=== PATIENT | male | born 1955 | race Caucasian/White ===

== ENCOUNTER 2023-12-14 14:50 | Inpatient (IN) | payer OTHER ==
[2023-12-14] MEDS ORDERED: MORPHINE 4 MG/ML SYR ONE ×2 (15:03→16:09)
[2023-12-14] MEDS ORDERED: ONDANSETRON 4 MG/2 ML VIAL ONE (15:03)
[2023-12-14 15:13] LABS: Absolute Lymphocytes (CBC) 0.7 K/uL (0.7-4.9); Hematocrit 41.4 % (39.6-49.0); MCV 94.1 fL (80-100); MPV 9.6 fL (7.6-11.3); Platelets 153 thou/uL (152-406)
[2023-12-14 15:28] LABS: Protime INR 1.13
--- NOTE | 2023-12-14 15:30 | RAD REPORT ---
EXAM DESCRIPTION: RAD - Hip Left 2 View - 12/14/2023 3:25 pm CLINICAL HISTORY: PAIN COMPARISON: Pelvis dated 12/14/2023 FINDINGS/IMPRESSION: Mildly displaced left intertrochanteric hip fracture. No dislocation.
--- NOTE | 2023-12-14 15:30 | RAD REPORT ---
EXAM DESCRIPTION: RAD - Pelvis - 12/14/2023 3:25 pm CLINICAL HISTORY: BLUNT TRAUMA COMPARISON: No comparisons FINDINGS/IMPRESSION: Left-sided intertrochanteric hip fracture which is only mildly displaced. No di slocation. No pelvic fracture identified.
[2023-12-14 15:31] LABS: Potassium 4.5 mEq/L (3.5-5.1)
[2023-12-14 15:54] LABS: Blood Morphology Comment NOT SEEN (NOT SEEN); Platelet Estimate ADEQ; White Blood Cell Scan OK (OK)
--- NOTE | 2023-12-14 16:20 | ER ---
Nurse's Notes [facility] Name: Cliff Torres Age: 68 yrs Sex: Male : 1955 Arrival Date: 12/14/2023 Time: 14:50 Bed 7 Private MD: Diagnosis: Intertrochanteric fracture of femur-closed, acute, left femur Presentation: 12/14 14:50 Chief complaint: EMS states: pt tripped over his underwear while trying to use the bathroom last night, fell on left hip , left hip appear broken , pt unable to bear weight. Coronavirus screen: At this time, the client does not indicate any symptoms associated with coronavirus-19. Coronavirus screen:. Ebola Screen: Patient negative for fever greater than or equal to 101.5 degrees Fahrenheit, and additional compatible Ebola Virus Disease symptoms Patient denies exposure to infectious person. Patient denies travel to an Ebola-affected area in the 21 days before illness onset. No symptoms or risks identified at this time. Initial Sepsis Screen: Does the patient meet any 2 criteria? No. Patient's initial sepsis screen is negative. Does the patient have a suspected source of infection? No. Patient's initial sepsis screen is negative. Risk Assessment: Do you want to hurt yourself or someone else? Patient reports no desire to harm self or others. 14:50 Method Of Arrival: EMS: [facility] 14:50 Acuity: [place]AL[place] 3 iw 15:10 Onset of symptoms was December 14, 2023. iw Historical: - Allergies: 15:11 No Known Allergies; iw - Home Meds: 17:30 glimepiride 4 mg Oral tablet 2 times per day [Active]; lisinopril 40 mg Oral tablet iw daily [Active]; metformin 1,000 mg Oral tablet 2 times per day [Active]; - PMHx: 15:11 Hypertensive disorder; Diabetes mellitus; iw - PSHx: 15:11 knee; shoulder; iw - Immunization history:: Adult Immunizations up to date, Client reports receiving the 2nd dose of the Covid vaccine, Pneumococcal vaccine is up to date. - Social history:: Smoking status: Patient denies any tobacco usage or history of. Patient uses alcohol, occasionally. - Family history:: not pertinent. - Hospitalizations: : No recent hospitalization is reported. Screenin:17 [place] ED Fall Risk Assessment (Adult) History of falling in the last 3 months, iw including since admission Yes- single mechanical fall (1 pt) Confusion or Disorientation No (0 pts) Intoxicated or Sedated No (0 pts) Impaired Gait No (0 pts) Mobility Assist Device Used No (0 pt) Altered Elimination No (0 pt) Score/Fall Risk Level. Abuse screen: Denies threats or abuse. Denies injuries from another. Nutritional screening: No deficits noted. Tuberculosis screening: No symptoms or risk factors identified. Assessment: 15:12 General: Appears uncomfortable, Behavior is calm, cooperative. Pain: Complains of pain iw in left hip and lateral aspect of left thigh Pain currently is 4 out of 10 on a pain scale. at worst was 10 out of 10 on a pain scale. Neuro: Level of Consciousness is awake, alert, obeys commands, Oriented to person, place, time, situation, Moves all extremities. Cardiovascular: Patient's skin is warm and dry. Respiratory: Respiratory effort is even, unlabored, Respiratory pattern is regular, symmetrical. Derm: Skin is healthy with good turgor. Musculoskeletal: Range of motion: limited in left hip. 15:35 Reassessment: Attempted to call pt's sister to notify pt is in the hospital per pt's aa5 request, did not answer, left voice mail, pt was notified. . Vital Signs: 14:50 BP 136 / 70; Pulse 89; Resp 16; Temp 98.1; Pulse Ox 98% on R/A; Weight 104.33 kg; iw Height 5 ft. 11 in. ; Pain 4/10; 16:19 BP 140 / 74; Pulse 91; Resp 16; Pulse Ox 97% on R/A; iw 14:50 Body Mass Index 32.08 (104.33 kg, 180.34 cm) iw 14:50 Pain Scale: Adult iw ED Course: 14:51 Patient arrived in ED. rn 14:51 Rohith Tam MD is Attending Physician. rn 15:08 Elisha Kelley, EVELIA is Primary Nurse. iw 15:10 Triage completed. iw 15:12 Arm band placed on. iw 15:13 Maintain EMS IV. Dressing intact. Good blood return noted. Site clean \T\ dry. Gauge \T\ iw site: 18 LAC. 15:18 Patient has correct armband on for positive identification. Provided Education on: . iw Pulse ox on. NIBP on. 15:26 XRAY Hip LEFT 2 view In Process Unspecified. EDMS 15:26 XRAY Pelvis In Process Unspecified. EDMS 16:20 Haris Tam MD is Hospitalizing Provider. rn 17:50 No provider procedures requiring assistance completed. Patient admitted, IV remains in iw place. Administered Medications: 15:08 Drug: morphine IVP or IV 4 mg IVP once over 4 mins Route: IVP; Infused Over: 4 mins; iw Site: left antecubital; 16:05 Follow up: Response: No adverse reaction; Pain is decreased iw 15:08 Drug: Ondansetron IVP 4 mg IVP once; over 2 minutes Route: IVP; Site: left antecubital; iw 16:05 Follow up: Response: No adverse reaction iw 16:18 Drug: morphine IVP or IV 4 mg IVP once over 4 mins Route: IVP; Infused Over: 4 mins; iw Site: left antecubital; 17:00 Follow up: Response: No adverse reaction; Pain is decreased iw 17:30 Drug: NS 0.9% IV 1000 ml IV at 1000 ml once Route: IV; Rate: 1000 ml; Site: left iw antecubital; 17:45 Follow up: IV Status: Infusion continued upon transfer iw 17:30 Drug: Insulin Regular Human Sub-Q 8 units Sub-Q once {Co-Signature: cm10 (seng Olmos RN).} Route: Sub-Q; Site: right lower abdomen; 17:45 Follow up: Response: No adverse reaction iw 19:06 Not Given (pt transferred to floor): ns 0.9% 1000 ml IV at 100 ml/hr continuous iw Medication: 15:17 VIS not applicable for this client. iw Outcome: 16:19 Discharge ordered by . rn 16:20 Decision to Hospitalize by Provider. rn 17:50 Admitted to Tele accompanied by nurse, via stretcher, room 403, Report called to seng Meadows RN 17:50 Condition: good 17:50 Instructed on the need for admit, Demonstrated understanding of instructions, 17:56 Patient left the ED. iw Signatures: Dispatcher [employer] Elisha Reyes RN RN iw Rohith Tam MD MD rn Calderon, Audri, RN RN aa5 Lexi Olmos RN cm10 Corrections: (The following items were deleted from the chart) 17:31 15:13 Maintain EMS IV. Dressing intact. Good blood return noted. Site clean \T\ dry. iw Gauge \T\ site: 20 LAC. iw
--- NOTE | 2023-12-14 16:20 | EDPHYS ---
Physician Documentation [facility] Name: Cliff Torres Age: 68 yrs Sex: Male : 1955 Arrival Date: 12/14/2023 Time: 14:50 Bed 7 Private MD: ED Physician Rohith Tam HPI: 12/14 16:16 This 68 yrs old Male presents to ER via EMS with complaints of Hip Injury. rn 16:16 The patient or guardian reports an injury, pain. sustained from a fall, The patient is rn not able to ambulate. Patient is not able to bear weight. The complaints affect the left hip. Modifying factors: The symptoms are alleviated by nothing, the symptoms are aggravated by any movement, weight bearing. Severity of symptoms: At their worst the symptoms were moderate, in the emergency department the symptoms are unchanged. The patient has not experienced similar symptoms in the past. Patient reports fall last night, onto left hip. Unable to bear weight or ambulate. No other injuries. Does not take blood thinners. No head injury or LOC.. Historical: - Allergies: 15:11 No Known Allergies; iw - Home Meds: 17:30 glimepiride 4 mg Oral tablet 2 times per day [Active]; lisinopril 40 mg Oral tablet iw daily [Active]; metformin 1,000 mg Oral tablet 2 times per day [Active]; - PMHx: 15:11 Hypertensive disorder; Diabetes mellitus; iw - PSHx: 15:11 knee; shoulder; iw - Immunization history:: Adult Immunizations up to date, Client reports receiving the 2nd dose of the Covid vaccine, Pneumococcal vaccine is up to date. - Social history:: Smoking status: Patient denies any tobacco usage or history of. Patient uses alcohol, occasionally. - Family history:: not pertinent. - Hospitalizations: : No recent hospitalization is reported. ROS: 16:16 Constitutional: Negative for fever, chills, and weight loss, Eyes: Negative for injury, rn pain, redness, and discharge, Neck: Negative for injury, pain, and swelling, Cardiovascular: Negative for chest pain, palpitations, and edema, Respiratory: Negative for shortness of breath, cough, wheezing, and pleuritic chest pain, Abdomen/GI: Negative for abdominal pain, nausea, vomiting, diarrhea, and constipation, Back: Negative for injury and pain, MS/Extremity: Positive for left hip injury and pain Skin: Negative for injury, rash, and discoloration, Neuro: Negative for headache, weakness, numbness, tingling, and seizure, Exam: 16:16 Constitutional: This is a well developed, well nourished patient who is awake, alert, rn and in no acute distress. Head/Face: Normocephalic, atraumatic. Neck: No midline cervical tenderness Cardiovascular: Regular rate and rhythm. No pulse deficits. Respiratory: No increased work of breathing, no retractions or nasal flaring. Abdomen/GI: Soft, non-tender Back: No spinal tenderness. MS/ Extremity: Pulses equal, no cyanosis. Painful range of motion left hip, left leg externally rotated Neuro: Awake and alert, GCS 15 Vital Signs: 14:50 BP 136 / 70; Pulse 89; Resp 16; Temp 98.1; Pulse Ox 98% on R/A; Weight 104.33 kg; iw Height 5 ft. 11 in. ; Pain 4/10; 16:19 BP 140 / 74; Pulse 91; Resp 16; Pulse Ox 97% on R/A; iw 14:50 Body Mass Index 32.08 (104.33 kg, 180.34 cm) iw 14:50 Pain Scale: Adult iw MDM: 14:51 Patient medically screened. rn 16:16 Differential diagnosis: hip fracture, intertrochanteric fracture, femoral neck rn fracture, femoral shaft fracture, arthritis, strain. Data reviewed: vital signs, nurses notes, radiologic studies, plain films, and as a result, I will admit patient. Consideration of Admission/Observation Patient was admitted/placed on observation. Escalation of care including admission/observation considered. Management of patient was discussed with the following: Line Repairer Tower: Consulted with Dr. Castro, will see patient. Counseling: I had a detailed discussion with the patient and/or guardian regarding the historical points, exam findings, and any diagnostic results supporting the discharge/admit diagnosis, lab results, radiology results, the need for further work-up and treatment in the hospital. Response to treatment: the patient's symptoms have mildly improved after treatment, and as a result, I will admit patient. ED course: Patient with left intertrochanteric femur fracture. Consulted with Dr. Castro. Will admit to hospitalist service.. 12/14 14:53 Order name: CBC with Diff; Complete Time: 15:59 rn 12/14 14:53 Order name: Basic Metabolic Panel; Complete Time: 15:59 rn 12/14 14:53 Order name: Protime (+inr); Complete Time: 15:59 rn 12/14 14:53 Order name: Ptt, Activated; Complete Time: 15:59 rn 12/14 15:54 Order name: CBC Smear Scan; Complete Time: 15:59 EDMS 12/14 14:52 Order name: XRAY Hip LEFT 2 view; Complete Time: 15:59 rn 12/14 14:52 Order name: XRAY Pelvis; Complete Time: 15:59 rn 12/14 16:53 Order name: CONS Physician Consult EDMS 12/14 14:53 Order name: IV Start; Complete Time: 15:08 rn Administered Medications: 15:08 Drug: morphine IVP or IV 4 mg IVP once over 4 mins Route: IVP; Infused Over: 4 mins; iw Site: left antecubital; 16:05 Follow up: Response: No adverse reaction; Pain is decreased iw 15:08 Drug: Ondansetron IVP 4 mg IVP once; over 2 minutes Route: IVP; Site: left antecubital; iw 16:05 Follow up: Response: No adverse reaction iw 16:18 Drug: morphine IVP or IV 4 mg IVP once over 4 mins Route: IVP; Infused Over: 4 mins; iw Site: left antecubital; 17:00 Follow up: Response: No adverse reaction; Pain is decreased iw 17:30 Drug: NS 0.9% IV 1000 ml IV at 1000 ml once Route: IV; Rate: 1000 ml; Site: left iw antecubital; 17:45 Follow up: IV Status: Infusion continued upon transfer iw 17:30 Drug: Insulin Regular Human Sub-Q 8 units Sub-Q once {Co-Signature: cm10 (seng Olmos RN).} Route: Sub-Q; Site: right lower abdomen; 17:45 Follow up: Response: No adverse reaction iw 19:06 Not Given (pt transferred to floor): ns 0.9% 1000 ml IV at 100 ml/hr continuous iw Disposition Summary: 12/14/23 16:20 Hospitalization Ordered Notes: Hospitalization Status: Inpatient Admission rn Provider: Haris Tam rn Location: Telemetry/MedSurg (Inpatient)(12/14/23 16:20) rn Condition: Stable(12/14/23 16:20) rn Problem: new(12/14/23 16:20) rn Symptoms: have improved(12/14/23 16:20) rn Bed/Room Type: Standard rn Room Assignment: 403(12/14/23 17:22) eb Diagnosis - Intertrochanteric fracture of femur - closed, acute, left femur(12/14/23 16:20) rn Forms: - Medication Reconciliation Form rn - SBAR form rn - Leadership Thank You Letter rn Signatures: Dispatcher [employer] Elisha Reyes, RN RN Rohith Canales MD MD rn Hui, Fredrick, DENTAL EQUIPMENT MECHANIC-C DENTAL EQUIPMENT MECHANIC-Cla1 Claire Villegas Clarissa RN cm10 Corrections: (The following items were deleted from the chart) 16:20 16:19 Home rn rn 16:20 16:19 new rn rn 16:20 16:19 have improved rn rn 16:20 16:19 Stable rn rn 16:20 16:19 Intertrochanteric fracture of femur - left femur, closed rn rn 17:22 16:20 rn eb
--- NOTE | 2023-12-14 17:01 | P.HP ---
Certification for Inpatient Patient admitted to: Inpatient With expected LOS: >2 Midnights Patient will require the following post-hospital care: None Practitioner: I am a practitioner with admitting privileges, knowledge of patient current condition, hospital course, and medical plan of care. Services: Services provided to patient in accordance with Admission requirements found in Title 42 Section 412.3 of the Code of Federal Regulations Patient History Date of Service: 12/14/23 Reason for admission: Left hip fracture History of Present Illness: 68-year-old male with history of hypertension, diabetes mellitus type [id number] presents the emergency department after having a mechanical fall complaining of left hip pain. Last night around 3 AM he tripped over his pants landing on his left side, his friends helped him in bed he thought he would sleep the pain off but in the morning when he woke up he was able to bear weight on that side and had significant pain. He was brought to the emergency department for further evaluation. His labs are significant for glucose of 316 white blood cell count 12.1 x-rays show left-sided intertrochanteric hip fracture with mild displacement ED discussed case with orthopedics who wishes for patient be admitted to the hospital service Allergies adhesive tape Allergy (Verified 02/03/17 13:55) Rash Home Medications: Ascorbic Acid [Vitamin C] 500 mg PO DAILY 11/14/15 Atorvastatin Calcium [Lipitor] 10 mg PO BEDTIME 11/14/15 Etodolac [Lodine Xl] 500 mg PO BID 11/14/15 Fexofenadine HCl [Esther Allergy] 180 mg PO DAILY 11/14/15 Glimepiride [Amaryl] 4 mg PO DAILY 11/14/15 Metformin HCl [Glucophage] 1,000 mg PO BID 11/14/15 lisinopriL [Prinivil] 20 mg PO DAILY 11/14/15 - Past Medical/Surgical History -: DM2 -: Hypertension -: Bilateral knee surgeries -: Shoulder surgery Psychosocial/ Personal History: , lives at home alone - Family History Mother -: Stroke Father -: Cancer - Social History Smoking Status: Never smoker Alcohol use: No CD- Drugs: No Caffeine use: Yes Place of Residence: Home Review of Systems 10-point ROS is otherwise unremarkable Musculoskeletal: Other (left hip pain) Physical Examination - Physical Exam General: Alert, In no apparent distress, Oriented x3 HEENT: Atraumatic, PERRLA, Mucous membr. moist/pink Neck: Supple, 2+ carotid pulse no bruit, No LAD Respiratory: Clear to auscultation bilaterally, Normal air movement Cardiovascular: Regular rate/rhythm, Normal S1 S2 Gastrointestinal: Normal bowel sounds, No tenderness Musculoskeletal: Tenderness (left hip tenderness) Neurological: Normal speech, Normal strength at 5/5 x4 extr, Normal tone, Normal affect - Studies Laboratory Data (last 24 hrs) 12/14/23 12/14/23 12/14/23 15:00 15:00 15:00 WBC 12.10 H Hgb 13.9 Hct 41.4 Plt Count 153 PT 12.4 INR 1.13 APTT 30.1 Sodium 136 Potassium 4.5 BUN 15 Creatinine 0.98 Glucose 316 H Assessment and Plan - Plan Assessment: Mildly displaced left intertrochanteric hip fracture Diabetes mellitus type [id number] with hyperglycemia Hypertension Plan: Mildly displaced left intertrochanteric hip fracture As needed pain medications N.p.o. at midnight in anticipation of surgical intervention Orthopedics consulted Diabetes mellitus type [id number]-[id number]-harfgaeda with hyperglycemia ACHS Accu-Chek, sliding scale insulin A1c in the morning Takes glimepiride 4 mg twice daily and metformin 1000 mg twice daily at home Hypertension Continue lisinopril 40 mg daily DVT PPX:SCD Code status:Full Discharge Plan: Home Plan to discharge in: Greater than 2 days - Advance Directives Does patient have a Living Will: No Does patient have a Durable POA for Healthcare: No - Code Status/Comfort Care Code Status Assessed: Yes (Full code) Critical Care: No Time Spent Managing Pts Care (In Minutes): 70
[2023-12-14] MEDS ORDERED: INSULIN REGULAR (HUMAN) 100 UNIT/ML ONE (17:24)
[2023-12-14] MEDS ORDERED: NA CHLORIDE 0.9% 1,000 ML ONE (17:25)
[2023-12-14] MEDS ORDERED: NA CHLORIDE 0.9% 0 ML ONE (17:25)
[2023-12-14] MEDS ORDERED: MORPHINE 2 MG/ML SYR ONE (17:43)
[2023-12-14] MEDS: NA CHLORIDE 0.9% 1,000 ML IV SCH ×2 (17:56→23:49)
[2023-12-14] MEDS ORDERED: ONDANSETRON 4 MG/2 ML VIAL IV PRN (17:56)
[2023-12-14] MEDS: MORPHINE 2 MG/ML SYR IV PRN (17:57)
[2023-12-14 18:24] VITALS: BMI 32.8
[2023-12-14] MEDS: INSULIN REGULAR (HUMAN) 100 UNIT/ML SQ SCH (21:01)
[2023-12-14] MEDS: HYDROCODONE/APAP 7.5/325 MG TAB PO PRN (22:58)
[2023-12-14 23:32] LABS: Specific Gravity 1.027 (1.005-1.030); Urine Bacteria None Seen /HPF (<20); Urine Bilirubin NEGATIVE (Negative); Urine Blood 1+ (Negative); Urine Clarity Clear (Clear); Urine Color Light-Yellow (Yellow); Urine Glucose 4+ (Negative); Urine Mucus Slight /HPF (None Seen); Urine Protein NEGATIVE (Negative); Urine RBC >50 /HPF (None Seen); Urine Urobilinogen Normal (Normal); Urine pH 5.5 (5.0-7.0)
[2023-12-15 05:52] LABS: Absolute Lymphocytes (CBC) 1.2 K/uL (0.7-4.9); Hematocrit 35.8 % (39.6-49.0); Lymphocytes % 14.4 % (15.3-44.8); MCV 93.6 fL (80-100); MPV 9.3 fL (7.6-11.3); Platelets 126 thou/uL (152-406); RBC Red Blood Cell Count 3.82 M/uL (4.33-5.43)
[2023-12-15 06:00] LABS: Potassium 3.7 mEq/L (3.5-5.1)
[2023-12-15] MEDS: INSULIN REGULAR (HUMAN) 100 UNIT/ML SQ SCH ×4 (07:30→20:40)
[2023-12-15] MEDS ORDERED: MORPHINE 2 MG/ML SYR IV ONE (08:11)
--- NOTE | 2023-12-15 09:36 | CON ---
Date of Consultation: 12/15/2023 Reason For Consultation: Left hip pain. History Of Present Illness: Cliff is a 68-year-old male who presented to the ER after sustaining a f all onto his left side from standing height. He reports tripping on his pants and fall to his left s jasmin with subsequent pain and inability to bear weight on the left hip. He was brought to the emergen cy room yesterday and had x-ray that demonstrated a left intertrochanteric femur fracture. He denies any other musculoskeletal complaints. Review of Systems: As above, otherwise negative. Past Medical History: Includes diabetes and hypertension. Past Surgical History: Includes right shoulder surgery as well as bilateral knee scopes. Family History: Reviewed and noncontributory. Social History: Denies tobacco, alcohol, or drug use. Lives at home by himself. Home Medications: Vitamin C, Lipitor, Lodine, Esther, glimepiride, metformin, lisinopril. Allergies: ADHESIVE TAPE. Physical Examination: General: He is in no apparent distress. HEENT: He is normocephalic, atraumatic. Neck: Supple. Cardiovascular: Brisk cap refill to all digits. Chest: Nonlabored breathing. Abdomen: Nondistended. Musculoskeletal: Bilateral upper extremities: Functional range of motion without pain. No gross de formities. No obvious dislocations. Right lower extremity: Functional range of motion without pain . No gross deformities. No obvious dislocations. Left lower extremity: Pain with range of motion of the left hip. Tenderness to palpation of the left hip. No tenderness to palpation of the knee. Neurovascularly intact distally. Diagnostic Studies: Demonstrate a left intertrochanteric femur fracture. Assessment And Plan: Cliff is a 68-year-old male with a left intertrochanteric femur fracture. Disc ussed with the patient at length risks and benefits associated with operative and nonoperative treatm ent. He expressed understanding and elected to proceed with surgery later today, and the patient nohelia l continue to be on the floor postoperatively for pain control, therapy, and possible placement. CV/MODL Voice ID: [id number] Report ID: [id number]
[2023-12-15] MEDS ORDERED: NA CHLORIDE 0.9% 1,000 ML ONE (10:29)
[2023-12-15] MEDS ORDERED: TRANEXAMIC ACID 1,000 MG/10 ML VIAL IV ONE (10:58)
[2023-12-15] MEDS ORDERED: CEFAZOLIN SODIUM 2 GM/VIAL ONE (10:58)
[2023-12-15] MEDS ORDERED: MIDAZOLAM HCL 2 MG/2 ML INJ ONE (11:07)
[2023-12-15] MEDS ORDERED: FENTANYL CITR 100 MCG/2 ML ONE (11:07)
[2023-12-15] MEDS ORDERED: propofoL 200 MG/20 ML VIAL IV ONE (11:07)
[2023-12-15] MEDS ORDERED: ROCURONIUM 50 MG/5 ML VIAL IV ONE (11:07)
[2023-12-15] MEDS ORDERED: LIDOCAINE 1% MPF 5 ML VIAL ONE (11:07)
[2023-12-15] MEDS ORDERED: ONDANSETRON 4 MG/2 ML VIAL ONE (11:07)
[2023-12-15] MEDS ORDERED: dexAMETHasone 10 MG/ML VIAL ONE (11:33)
[2023-12-15] MEDS ORDERED: NEOSTIGMINE 1 MG/ML -10 ML VIAL ONE (12:52)
[2023-12-15] MEDS ORDERED: GLYCOPYRROLATE 0.2 MG/ML SYR ONE ×3 (12:52)
[2023-12-15] MEDS ORDERED: POTASSIUM CL SA 10 MEQ TAB PO ONE (13:00)
--- NOTE | 2023-12-15 13:01 | P.BOP ---
Preoperative diagnosis: left intertrochanteric femur fracture Postoperative diagnosis: Same Primary procedure: Cephalomedullary fixation of left intertrochanteric femur fracture Registered Nurse Ambulatory: NONE,NONE Estimated blood loss: 75 cc Specimen: None Findings: See dictation Anesthesia: General Complications: None Implants: Biomet affixus nail 13 x 180, 130 degrees, 110 mm lag screw Fluids & blood products: per anesthesia record Transferred to: Recovery Room Condition: Good
[2023-12-15] MEDS ORDERED: ACETAMINOPHEN 325 MG TABLET PO PRN (13:06)
[2023-12-15] MEDS ORDERED: DOCUSATE NA 100 MG CAP PO PRN (13:06)
[2023-12-15] MEDS ORDERED: TRAMADOL HCL 50 MG TAB PO PRN (13:06)
[2023-12-15] MEDS: HYDROMORPHONE HCL 1 MG/ML INJ ONE ×2 (13:28→13:36)
[2023-12-15 13:44] LABS: Hematocrit 37.1 % (39.6-49.0)
--- NOTE | 2023-12-15 13:44 | P.OP ---
Preoperative diagnosis: Left intertrochanteric femur fracture Postoperative diagnosis: Same Primary procedure: Cephalomedullary fixation of left intertrochanteric femur fracture Anesthesia: General Estimated blood loss: 75 cc Specimen: None Findings: See dictation Operative Technique: Indication For Procedure: Cliff is a 68-year-old male, who presented to the emergency room after a fall with left hip pain and inability to bear weight. Imaging demonstrated a left intertrochanteric femur fracture. I Discussed with the patient at length risks and benefits associated with operative and nonoperative treatment. He expressed understanding and elected to proceed with operative treatment. Description Of Procedure: After informed consent was obtained, the patient was identified in the preoperative holding area. The left lower extremity was marked. The patient was brought back to the operating room, transferred to the operating table in supine fashion, placed under general anesthesia. He was placed on the fracture table with his extremities well padded and gentle traction was placed on the left lower extremity and closed reduction was obtained and confirmed using fluoroscopy. Once adequate reduction was obtained, the left lower extremity was then prepped and draped in the usual sterile fashion. A time-out was initiated. Correct patient and procedure were confirmed and identified. The patient received preoperative prophylactic antibiotics. An approximately 8 cm in length incision proximal to the greater trochanter was made and dissection was taken down to the greater trochanter . A guide pin was then placed in the tip of the greater trochanter down the femoral canal in an antegrade fashion. Proper positioning was confirmed using fluoroscopy. An entry reamer was then placed over the guide pin. A ball-tip guidewire was then placed down the proximal segment into the distal fragment. Preoperative measurement confirmed 130 degree nail to be selected. Next, over the guidewire, the femoral canal was reamed starting with an 8 mm reamer and increasing in 1 mm increments until an 15 mm reamer was placed. Preoperative imaging was reviewed and am 13 x 180 mm nail was placed with 130 degrees. Once the nail was placed with good overall reduction of the fracture, a 6 cm incision was made over the lateral thigh for placement of the lag screw and a size 110 mm lag screw was placed. Fluoroscopy was then used to confirm hardware placement with overall good maintenance reduction of the fracture. A distal interlocking screw was then placed using the jig in bicortical fashion. Final x-rays were taken to ensure proper reduction as well as placement of the hardware. The wounds were then irrigated thoroughly with normal saline. Subcutaneous deep tissue was appro ximated using 0 Vicryl. Subcutaneous tissue was approximated using 2-0 Vicryl. Skin was approximated using tyler. Sterile dressings were applied. The patient was awakened and transferred to PACU in stable condition. Postoperative Plan: The patient will be weightbearing as tolerated of his left lower extremity. Physical therapy will be consulted. He may follow up in clinic in 2 weeks for wound check and staple removal. Complications: None Implants: Biomet Marry affixus nail 13 x 180 mm nail, 130 degrees 110 mm lag screw Fluids & blood products: per anesthesia record Transferred to: Recovery Room Condition: Good
--- NOTE | 2023-12-15 14:05 | RAD REPORT ---
EXAM DESCRIPTION: RAD - Hip Left 2 View - 12/15/2023 1:45 pm CLINICAL HISTORY: LT HIP SAAD/NAIL COMPARISON: None available. FINDINGS: Twenty-two Images were sent to PACS, documenting fluoroscopy use during left hip fixation. No radiologist was available for the procedure, nor will any image interpretation he provided. Jojo santizo refer to the procedural report for additional details. Fluoroscopy time: 0.7 Minutes. IMPRESSION: Documentation of fluoroscopy utilization as above.
--- NOTE | 2023-12-15 14:19 | P.PN ---
Date of Service: 12/15/23 Subjective: Pain improving no acute events overnight ROS: 10 point ROS as noted above, otherwise negative Physical exam GEN: Alert, oriented, NAD HEENT: Normal conjunctiva, sclera anicteric CV: Regular rate and rhythm, no edema Pulm: Nonlabored respirations on room air ABD: Soft, nontender, nondistended MSK: No joint tenderness Integumentary: No rashes Neuro: Normal speech, normal affect Vitals reviewed Assessment: Mildly displaced left intertrochanteric hip fracture Mildly displaced left intertrochanteric hip fracture S/P Cephalomedullary fixation of left intertrochanteric femur fracture Diabetes mellitus type [id number]-[id number]-[id number] with hyperglycemia Hypertension Plan: Mildly displaced left intertrochanteric hip fracture S/P Cephalomedullary fixation of left intertrochanteric femur fracture As needed pain medications Had surgery 12/15 WBAT, PT Possible inpatient rehab at [place] Diabetes mellitus type 1gwf-[id number]-bkgcwssdu with hyperglycemia ACHS Accu-Chek, sliding scale insulin A1c pending Takes glimepiride 4 mg twice daily and metformin 1000 mg twice daily at home Hypertension Continue lisinopril 40 mg daily DVT PPX:SCD Code status:Full Discharge Plan: Home vs inpatient rehab Plan to discharge in: 1-2 days Time Spent Managing Pts Care (In Minutes): 35
[2023-12-15] MEDS: NA CHLORIDE 0.9% 1,000 ML IV SCH (16:24)
--- NOTE | 2023-12-15 17:25 | RAD REPORT ---
EXAM DESCRIPTION: RAD - Hip Left 2 View - 12/15/2023 1:45 pm CLINICAL HISTORY: postop COMPARISON: Hip Left 2 View dated 12/15/2023; Hip Left 2 View dated 12/14/2023 TECHNIQUE: Left hip, AP and frogleg views of the left hip. FINDINGS: Improved alignment of left femoral intertrochanteric fracture following intramedullary iraida ding and compression screw fixation. Skin tyler in place. IMPRESSION: Improved alignment of the left femoral neck fracture following open reduction and advertising internship al fixation.
[2023-12-15] MEDS: CEFAZOLIN SODIUM 2 GM in NA CHLORIDE 0.9% 100 ML IVPB SCH (17:30)
[2023-12-16] MEDS: CEFAZOLIN SODIUM 2 GM in NA CHLORIDE 0.9% 100 ML IVPB SCH ×2 (00:01→05:40)
[2023-12-16] MEDS: NA CHLORIDE 0.9% 1,000 ML IV SCH ×2 (04:29→09:56)
[2023-12-16] MEDS: MORPHINE 2 MG/ML SYR IV PRN ×2 (05:43→11:02)
[2023-12-16 06:01] LABS: Absolute Lymphocytes (CBC) 0.7 K/uL (0.7-4.9); Hematocrit 36.8 % (39.6-49.0); Lymphocytes % 5.3 % (15.3-44.8); MCV 93.7 fL (80-100); MPV 9.6 fL (7.6-11.3); Platelets 145 thou/uL (152-406); RBC Red Blood Cell Count 3.92 M/uL (4.33-5.43)
[2023-12-16 06:16] LABS: Potassium 3.7 mEq/L (3.5-5.1)
[2023-12-16] MEDS ORDERED: POTASSIUM CL SA 10 MEQ TAB PO ONE (06:22)
[2023-12-16] MEDS ORDERED: FEXOFENADINE 180 MG TAB PO PRN (07:32)
[2023-12-16] MEDS: INSULIN REGULAR (HUMAN) 100 UNIT/ML SQ SCH ×4 (07:50→21:03)
[2023-12-16] MEDS: ENOXAPARIN 40 MG/0.4 ML SQ SCH (08:23)
[2023-12-16] MEDS: ASCORBIC ACID 500 MG TABLET PO SCH ×2 (08:23→21:03)
[2023-12-16] MEDS: lisinopriL 20 MG TAB PO SCH (08:24)
[2023-12-16] MEDS: HYDROCODONE/APAP 7.5/325 MG TAB PO PRN (17:10)
--- NOTE | 2023-12-16 18:05 | P.PN ---
Date of Service: 12/16/23 Subjective Working with physical therapy this morning. Resting on the bed at time of examination. Pain well-controlled when at rest. Discharge pending inpatient rehab. ROS 10 point ROS as noted above, otherwise negative Physical exam GEN: AAO x3, NAD HEENT: Normal conjunctiva, sclera anicteric CV: Regular rate and rhythm, no edema, no murmur present Pulm: Nonlabored respirations on room air, symmetrical chest wall movement, on room air ABD: Soft, nontender, nondistended, + BS present MSK: No joint tenderness, dressing to left hip (C/D/I) Integumentary: No rashes, incision to left hip Neuro: Normal speech, normal affect, no anxiety present Vitals reviewed Assessment: Mildly displaced left intertrochanteric hip fracture Mildly displaced left intertrochanteric hip fracture S/P Cephalomedullary fixation of left intertrochanteric femur fracture Diabetes mellitus type 5llg-ofxbzlx-odgfzcysw with hyperglycemia Hypertension Plan: Mildly displaced left intertrochanteric hip fracture S/P Cephalomedullary fixation of left intertrochanteric femur fracture As needed pain medications Had surgery 12/15 WBAT, PT Possible inpatient rehab at [place] Diabetes mellitus type 6vbd-edqhyko-kbmkvyumb with hyperglycemia ACHS Accu-Chek, continue sliding scale insulin A1c 6.9 Takes glimepiride 4 mg twice daily and metformin 1000 mg twice daily at home Hypertension Continue lisinopril 40 mg daily DVT PPX:SCD Code status:Full Discharge Plan: Home vs inpatient rehab Plan to discharge in: 1-2 days
[2023-12-16] MEDS: ATORVASTATIN 10 MG TAB PO SCH (21:03)
[2023-12-17 07:21] LABS: Absolute Lymphocytes (CBC) 1.4 K/uL (0.7-4.9); Hematocrit 35.7 % (39.6-49.0); Lymphocytes % 16.4 % (15.3-44.8); MCV 94.2 fL (80-100); MPV 9.3 fL (7.6-11.3); Platelets 118 thou/uL (152-406); RBC Red Blood Cell Count 3.79 M/uL (4.33-5.43)
[2023-12-17 07:31] LABS: Potassium 3.5 mEq/L (3.5-5.1)
[2023-12-17] MEDS: lisinopriL 20 MG TAB PO SCH (08:54)
[2023-12-17] MEDS: INSULIN REGULAR (HUMAN) 100 UNIT/ML SQ SCH ×4 (08:55→20:47)
[2023-12-17] MEDS: ENOXAPARIN 40 MG/0.4 ML SQ SCH (08:55)
[2023-12-17] MEDS: ASCORBIC ACID 500 MG TABLET PO SCH ×2 (08:55→20:46)
[2023-12-17] MEDS ORDERED: POTASSIUM CL SA 10 MEQ TAB PO ONE (09:00)
[2023-12-17] MEDS: HYDROCODONE/APAP 7.5/325 MG TAB PO PRN (09:31)
[2023-12-17] MEDS: MORPHINE 2 MG/ML SYR IV PRN (11:19)
--- NOTE | 2023-12-17 16:52 | P.PN ---
Date of Service: 12/17/23 Subjective Awake and conversant this a.m. Working with physical therapy. Pain more controlled NAEON ROS 10 point ROS as noted above, otherwise negative Physical exam GEN: AAO x3, NAD, conversant HEENT: Normal conjunctiva, sclera anicteric CV: Regular rate and rhythm , no edema, no murmur present Pulm: Nonlabored respirations on room air, bilaterally clear breath sounds, symmetrical chest wall movement ABD: Soft, nontender, nondistended, normoactive bowel sounds MSK: No joint tenderness, 2+ peripheral pulses, full ROM Integumentary: No rashes, incision to left hip, dressing to left hip (C/D/I) Neuro: Normal speech, normal affect, no anxiety present, in good spirits Vitals reviewed Assessment: Mildly displaced left intertrochanteric hip fracture Mildly displaced left intertrochanteric hip fracture S/P Cephalomedullary fixation of left intertrochanteric femur fracture Diabetes mellitus type 4qat-ipdymkn-kdsawabto with hyperglycemia Hypertension Plan: Mildly displaced left intertrochanteric hip fracture S/P Cephalomedullary fixation of left intertrochanteric femur fracture As needed pain medications Had surgery 12/15 WBAT, PT Possible inpatient rehab at [place]-pending approval Diabetes mellitus type 4zph-oieeict-rkllljmto with hyperglycemia ACHS Accu-Chek, continue sliding scale insulin, starting Lantus 15 units tonight A1c 6.9 Serum glucose 268, [id number] glucose 259/239/248 (12/17) Takes glimepiride 4 mg twice daily and metformin 1000 mg twice daily at home Hypertension Continue lisinopril 40 mg daily Blood pressure 157/84, 149/67 (12/17) DVT PPX: Lovenox started per orthopedic surgery (12/16) Code status:Full Discharge Plan: Home vs inpatient rehab Plan to discharge in: 1-2 days
[2023-12-17] MEDS: INSULIN GLARGINE 100 UNIT/ML SQ SCH (20:46)
[2023-12-17] MEDS: ATORVASTATIN 10 MG TAB PO SCH (20:46)
[2023-12-18 05:53] LABS: Potassium 3.8 mEq/L (3.5-5.1)
[2023-12-18] MEDS: ASCORBIC ACID 500 MG TABLET PO SCH ×2 (08:36→20:04)
[2023-12-18] MEDS: INSULIN REGULAR (HUMAN) 100 UNIT/ML SQ SCH ×4 (08:36→20:04)
[2023-12-18] MEDS: ENOXAPARIN 40 MG/0.4 ML SQ SCH (08:36)
[2023-12-18] MEDS: lisinopriL 20 MG TAB PO SCH (08:36)
[2023-12-18] MEDS ORDERED: POTASSIUM CL SA 10 MEQ TAB PO ONE (09:00)
[2023-12-18] MEDS: MORPHINE 2 MG/ML SYR IV PRN ×2 (10:25→21:16)
--- NOTE | 2023-12-18 16:22 | P.PN ---
Date of Service: 12/18/23 Subjective Ambulated in the jimenez this morning Requiring rest breaks while working with physical therapy Per physical therapy's report, his longest ambulation stretch is 65 feet ROS 10 point ROS as noted above, otherwise negative Physical exam GEN: AAO x3, conversant HEENT: Normal conjunctiva, sclera anicteric CV: Regular rate and rhythm , no edema, no murmur present, S1 S2 present Pulm: Nonlabored respirations on room air, bilaterally clear breath sounds, symmetrical chest wall movement ABD: Soft, nontender, nondistended, normoactive bowel sounds MSK: No joint tenderness, 2+ peripheral pulses, full ROM Integumentary: No rashes, incision to left hip, dressing to left hip (C/D/I) Neuro: Normal speech, normal affect, no anxiety present, in good spirits Vitals reviewed Assessment: Mildly displaced left intertrochanteric hip fracture Mildly displaced left intertrochanteric hip fracture S/P Cephalomedullary fixation of left intertrochanteric femur fracture Diabetes mellitus type 4yga-eypjqts-ervysiseg with hyperglycemia Hypertension Plan: Mildly displaced left intertrochanteric hip fracture S/P Cephalomedullary fixation of left intertrochanteric femur fracture As needed pain medications Had surgery 12/15 WBAT, PT Awaiting [employer] approval Working with PT, requiring rest breaks while ambulating with improvement today Diabetes mellitus type 7wvv-ajxelhz-wgahpdfng with hyperglycemia ACHS Accu-Chek, increased sliding scale insulin protocol to moderate, continue Lantus 15 units tonight A1c 6.9 Serum glucose remains elevated Takes glimepiride 4 mg twice daily and metformin 1000 mg twice daily at home Hypertension Continue lisinopril 40 mg daily Blood pressure stable DVT PPX: Lovenox started per orthopedic surgery (12/16) Code status:Full Discharge Plan: pending [employer] approval Plan to discharge in: 1-2 days
[2023-12-18] MEDS: HYDROCODONE/APAP 7.5/325 MG TAB PO PRN (19:44)
[2023-12-18] MEDS: ATORVASTATIN 10 MG TAB PO SCH (20:04)
[2023-12-18] MEDS: INSULIN GLARGINE 100 UNIT/ML SQ SCH (20:04)
[2023-12-19 05:47] LABS: Potassium 4.1 mEq/L (3.5-5.1)
[2023-12-19] MEDS: ASCORBIC ACID 500 MG TABLET PO SCH (08:09)
[2023-12-19] MEDS: lisinopriL 20 MG TAB PO SCH (08:09)
[2023-12-19] MEDS: ENOXAPARIN 40 MG/0.4 ML SQ SCH (08:09)
[2023-12-19] MEDS: INSULIN REGULAR (HUMAN) 100 UNIT/ML SQ SCH ×3 (08:10→16:44)
[2023-12-19] MEDS: MORPHINE 2 MG/ML SYR IV PRN ×2 (10:08→16:14)
--- NOTE | 2023-12-19 13:51 | P.DS ---
Admission Date: 12/14/23 Discharge Date: 12/19/23 Disposition: TRANSFER TO SNF - REHAB Discharge Condition: FAIR Reason for Admission: Left hip fracture Brief History of Present Illness: Diagonsis: Mildly displaced left intertrochanteric hip fracture Mildly displaced left intertrochanteric hip fracture S/P Cephalomedullary fixation of left intertrochanteric femur fracture Diabetes mellitus type 3qtw-efdpsyb-bcpuyeqjj with hyperglycemia Hypertension HPI 12/14/23 Cliff Torres is a 68-year-old male with history of hypertension, diabetes mellitus type [id number]-wfzyyzw-rixpbxmyz presents the emergency department after having a mechanical fall complaining of left hip pain. Last night around 3 AM he tripped over his pants landing on his left side, his friends helped him in bed he thought he would sleep the pain off but in the morning when he woke up he was able to bear weight on that side and had significant pain. He was brought to the emergency department for further evaluation. His labs are significant for glucose of 316 white blood cell count 12.1 x-rays show left-sided intertrochanteric hip fracture with mild displacement ED discussed case with orthopedics who wishes for patient be admitted to the hospital service Hospital Course: Cliff Torres is a pleasant 68 year old male with a past medical history significant for hypertension and diabetes mellitus type 2kqv-fgxkmpt-wakkydwyh who was admitted to the [facility] on 12/14/23 for left- sided intertrochanteric hip fracture with mild displacement. Cliff Torres presented to the emergency room after having a mechanical fall complaining of left hip pain. Left hip x-ray reported "Mildly displaced left intertrochanteric hip fracture. No dislocation." Dr. Castro was consulted and requested admission for surgery. Dr. Castro performed surgery on 12/15/2023. He has tolerated surgery well and has worked with physical therapy. He will need to follow-up with Dr. Castro in 1 week. He has had episodes of hyperglycemia since admission, he will need to follow-up with his PCP for further diabetes management. He is tolerating p.o. diet, ambulating independently and with physical therapy, pain is well-controlled, and he is hemodynamically stable ready for discharge. On 12/19/24, Cliff Torres was seen on morning rounds and deemed medically stable for discharge to acute Rehab at [facility]. Cliff was discharged with instructions to schedule follow-up appointments with PCP and Dr. Castro. Cliff was provided prescriptions for Eliquis. The patient and family members were given the opportunity to ask questions and reported no further questions. Furthermore, all questions were answered to the best of my ability. A copy of this discharge summary will be sent to the above providers to facilitate continuity of care. Today, I personally spent 50 minutes with Cliff, of which greater than 50% of the time was spent in patient education, counseling, and coordination of care as described above. Physical exam GEN: AAO x3, conversant HEENT: Normal conjunctiva, sclera anicteric CV: Regular rate and rhythm, no murmur present, S1 S2 present Pulm: Nonlabored respirations on room air, bilaterally clear breath sounds, symmetrical chest wall movement ABD: Soft, nontender, nondistended, normoactive bowel sounds MSK: No joint tenderness, 2+ peripheral pulses, full ROM, no edema Integumentary: No rashes, incision to left hip, dressing to left hip (C/D/I) Neuro: Normal speech, normal affect, no anxiety present, in good spirits Vital Signs/Physical Exam: Temp Pulse Resp BP Pulse Ox 97.8 F 89 17 130/73 96 12/19/23 12:00 12/19/23 12:00 12/19/23 12:00 12/19/23 12:00 12/19/23 12:00 Laboratory Data at Discharge: WBC 8.70 thou/uL (4.3-10.9) 12/17/23 07:03 Hgb 12.3 g/dL (13.6-17.9) L 12/17/23 07:03 Hct 35.7 % (39.6-49.0) L 12/17/23 07:03 Plt Count 118 thou/uL (152-406) L 12/17/23 07:03 PT 12.4 SECONDS (9.5-12.5) 12/14/23 15:00 INR 1.13 12/14/23 15:00 APTT 30.1 SECONDS (24.3-36.9) 12/14/23 15:00 Sodium 134 mEq/L (136-145) L 12/19/23 05:05 Potassium 4.1 mEq/L (3.5-5.1) 12/19/23 05:05 BUN 13 mg/dL (7-18) 12/19/23 05:05 Creatinine 0.75 mg/dL (0.70-1.30) 12/19/23 05:05 Glucose 240 mg/dL (74-106) H 12/19/23 05:05 Magnesium 2.0 mg/dL (1.6-2.4) 12/18/23 05:13 Home Medications: Ascorbic Acid [Vitamin C*] 500 mg PO BID 11/14/15 Atorvastatin Calcium [Lipitor*] 10 mg PO BEDTIME 11/14/15 Fexofenadine HCl [Esther Allergy] 180 mg PO DAILY PRN 11/14/15 Glimepiride [Amaryl] 4 mg PO BID 11/14/15 Metformin HCl [Glucophage] 1,000 mg PO BID 11/14/15 lisinopriL [Prinivil*] 40 mg PO DAILY 11/14/15 Apixaban [Eliquis] 2.5 mg PO BID 42 Days #42 tablet 12/19/23 New Medications: Apixaban [Eliquis] 2.5 mg PO BID 42 Days #42 tablet Physician Discharge Instructions: Cliff Torres presented to the emergency room after having a mechanical fall complaining of left hip pain. Left hip x-ray reported "Mildly displaced left intertrochanteric hip fracture. No dislocation." Dr. Castro was consulted and Cliff was admitted to [facility] on 12/14/2023. Dr. Castro performed surgery on 12/15/2023. He has tolerated surgery well and has worked with physical therapy. He will need to follow-up with Dr. Castro in 1 week. He has had episodes of hypoglycemia since admission, he will need to follow-up with his PCP for further diabetes management. 1. Please call and schedule a follow-up appointment with your Dr. Castro in one week for wound check and tyler removed. 2. Please call and schedule a follow-up appointment with PCP in 3-5 days - Please follow-up with your PCP for medication refills/adjustments -Follow up for better diabetes management 3. Weightbearing as tolerated of the left lower extremity, FALL PRECAUTIONS 4. Continue diabetic diet and check blood glucose three times daily to keep a record for your PCP. 5. Pain medication will be prescribed by Dr. Castro at your postop visit. New medication Eliquis 2.5 mg p.o. twice daily for 21 days Diet: ADA Activity: Fall precautions Followup: Emily De La Cruz NP [Primary Care Provider] - (schedule for appointment in 3-5 days) Johny Castro MD [ACTIVE - CAN ADMIT] - 1 Week (call to schedule an appointemnt) Time spent managing pt's care (in minutes): 50
[2023-12-19 16:43] VITALS: BP 155/72; TEMP 97.9; O2SAT 97
== END 2023-12-19 17:25 | DRG 482 ==
LOC: ER 14:50 → 4TH 17:27
PROVIDERS: ADMIT Hospitalist; ATTEND Internal Medicine
PROC: 0QS706Z Reposition Left Upper Femur with Intramedullary Internal Fixation Device, Open Approach (ICD-10-PCS; principal; 2023-12-15 11:00)
DX: S72.142A Displaced intertrochanteric fracture of left femur, initial encounter for closed fracture (principal); I10 Essential (primary) hypertension; E11.65 Type 2 diabetes mellitus with hyperglycemia; Z60.2 Problems related to living alone; Z79.01 Long term (current) use of anticoagulants; Z79.84 Long term (current) use of oral hypoglycemic drugs; Z79.899 Other long term (current) drug therapy; Z91.048 Other nonmedicinal substance allergy status; W01.0XXA Fall on same level from slipping, tripping and stumbling without subsequent striking against object, initial encounter; Y92.019 Unspecified place in single-family (private) house as the place of occurrence of the external cause; Y93.9 Activity, unspecified; Y99.9 Unspecified external cause status
CPT/HCPCS: 31720; 36415; 72170; 80048; 81001; 82947; 83036; 83735; 85014; 85018; 85025; 85610; 85730; 94010; 96372; 96374; 96375; 97116; 97161; 97165; 97530; 99285; J1100; J1170; J1650; J1815; J2001; J2250; J2270; J2405; J2704; J2710; J3010; J7030; J7040